=== PATIENT | female | born 1940 | race Caucasian/White ===

== ENCOUNTER 2024-03-01 10:57 | Day surgery (SDC) | payer MEDICARE, MEDICAID ==
[2024-03-01] VITALS (13 sets, daily range): BP systolic 120–149; BP diastolic 50–86; PULSE 45–79; RESP 13–23; TEMP 97.8; O2SAT 93–97
[~2024-03-01] VITALS: Ht 160 cm; Wt 86.0 kg
[2024-03-01] MEDS ORDERED: LOSA50TA64 PO (11:48)
[2024-03-01] MEDS ORDERED: METF-1203 PO (11:48)
[2024-03-01] MEDS ORDERED: ATOR40TA72 PO (11:48)
[2024-03-01] MEDS ORDERED: METO50TA16 PO (11:48)
[2024-03-01] MEDS ORDERED: SACU1TAB PO (11:48)
[2024-03-01] MEDS ORDERED: APIX5TAB3 PO (11:48)
[2024-03-01] MEDS ORDERED: CYAN250010 PO (11:48)
[2024-03-01] MEDS ORDERED: ONDA4TAB12 PO (11:48)
[2024-03-01] MEDS ORDERED: GLIM2TAB6 PO (11:48)
[2024-03-01] MEDS ORDERED: AMI200T PO (11:48)
[2024-03-01] MEDS ORDERED: DAPA5TAB PO (11:48)
[2024-03-01 11:52] LABS: APTT 29 SECONDS (22-32); INR 1.2 INR; PROTHROMBIN TIME 12.3 SECONDS (9.0-12.0)
[2024-03-01 11:54] LABS: BASOPHILS % (AUTO) 0.5 % (0-1); EOSINOPHILS # (AUTO) 0.2 X10'3 (0-0.9); EOSINOPHILS % (AUTO) 1.8 % (0-6); HEMATOCRIT 45.1 % (35.0-45.0); HEMOGLOBIN 14.7 g/dl (12.0-16.0); LYMPHOCYTES # (AUTO) 1.4 X10'3 (1.1-4.8); LYMPHOCYTES % (AUTO) 16.6 % (21-51); MEAN CORPUSCULAR HEMOGLOBIN 27.8 PG (27.0-31.0); MEAN CORPUSCULAR HGB CONC 32.6 g/dL (33.0-36.5); MEAN CORPUSCULAR VOLUME 85.3 FL (78-98); MEAN PLATELET VOLUME 8.6 FL (7.4-10.4); MONOCYTES # (AUTO) 0.4 X10'3 (0-0.9); MONOCYTES % (AUTO) 4.4 % (2-12); NEUTROPHILS # (AUTO) 6.4 X10'3 (1.8-7.7); NEUTROPHILS % (AUTO) 76.7 % (42-75); PLATELET COUNT 259 X10'3 (140-440); RED BLOOD COUNT 5.28 X10'6 (4.20-5.60); RED CELL DISTRIBUTION WIDTH 15.5 % (11.5-14.5); WHITE BLOOD COUNT 8.4 X10'3 (4.5-11.0)
[2024-03-01 12:00] LABS: ALANINE AMINOTRANSFERASE 21 U/L (12-78); ALBUMIN/GLOBULIN RATIO 0.8 (1.1-1.5); ALKALINE PHOSPHATASE 54 IU/L (46-116); ANION GAP 8 (8-16); ASPARTATE AMINO TRANSFERASE 13 U/L (10-37); BILIRUBIN,TOTAL 0.8 MG/DL (0.1-1.0); BLOOD UREA NITROGEN 13 MG/DL (7-18); BUN/CREATININE RATIO 13.5 (10.0-20.0); CALCIUM 9.1 MG/DL (8.5-10.1); CHLORIDE 109 MMOL/L (99-107); CHOL/HDL RATIO 2.5 (0.00-4.99); CHOLESTEROL 102 MG/DL (0-200); CREATININE 0.96 MG/DL (0.40-0.90); HDL CHOLESTEROL 41 MG/DL (35-60); LDL CHOLESTEROL 49 MG/DL (50-100); POTASSIUM 3.9 MMOL/L (3.5-5.1); SODIUM 143 MMOL/L (135-145); TOTAL CARBON DIOXIDE 26.2 MMOL/L (24-32); TOTAL PROTEIN 6.9 G/DL (6.4-8.2); TRIGLYCERIDES 109 MG/DL (20-135); eCRCL 36 ML/MIN; eGFR 55 ML/MIN
[2024-03-01 12:02] LABS: GLUCOSE 162 MG/DL (70-104)
[2024-03-01] MEDS: MIDAZolam 1mg/ml 10ml vial IV ONE (14:25)
[2024-03-01] MEDS: normal saline 1000ml 1,000 ML IV SCH (14:25)
[2024-03-01] MEDS: fentaNYL/PF 50MCG/1 ML 2ML syringe IV ONE (14:26)
== END 2024-03-01 15:40 | disposition home or self-care (01) ==
LOC: SSTAY O 10:57
PROVIDERS: ATTEND Student in an Organized Health Care Education/Training Program
DX: I48.91 Unspecified atrial fibrillation (principal); I45.2 Bifascicular block; I11.0 Hypertensive heart disease with heart failure; I50.9 Heart failure, unspecified; I25.10 Atherosclerotic heart disease of native coronary artery without angina pectoris; E11.9 Type 2 diabetes mellitus without complications; E78.00 Pure hypercholesterolemia, unspecified; I25.2 Old myocardial infarction; Z86.73 Personal history of transient ischemic attack (TIA), and cerebral infarction without residual deficits; Z79.01 Long term (current) use of anticoagulants; Z79.84 Long term (current) use of oral hypoglycemic drugs; Z79.899 Other long term (current) drug therapy; Z88.8 Allergy status to other drugs, medicaments and biological substances
CPT/HCPCS: 36415; 80053; 80061; 82948; 85025; 85610; 85730; 92960; 93005; J2250; J3010; J7030; A4620